=== PATIENT | female | born 1970 ===

== ENCOUNTER 2021-07-22 19:32 | Inpatient (IN) | payer BC ==
[2021-07-22] MEDS ORDERED: Sodium Chloride 0.9% 2.5 ML Syringe FLUSH PRN (20:57)
[2021-07-22] MEDS ORDERED: Nalbuphine 10 MG/1 ML Vial IVPUSH PRN (20:57)
[2021-07-22] MEDS ORDERED: Sodium Chloride 0.9% 20 ML SDV IV PRN (20:57)
[2021-07-22] MEDS ORDERED: Misoprostol 200 MCG Tab PO PRN (20:57)
[2021-07-22] MEDS ORDERED: Lidocaine 1% 50 ML MDV INJECT PRN (20:57)
[2021-07-22] MEDS ORDERED: Tranexamic Acid 1,000 MG in Sodium Chloride 0.9% 100 ML IV PRN (20:57)
[2021-07-22] MEDS ORDERED: Terbutaline 1 MG/ML SDV SUBCUT PRN (20:57)
[2021-07-22] MEDS ORDERED: Sodium Chloride 0.9% 10 ML Syringe FLUSH PRN (20:57)
[2021-07-22] MEDS ORDERED: Methylergonovine 0.2 MG/1 ML Amp IM PRN (20:57)
[2021-07-22] MEDS ORDERED: Water For Irrigation,Sterile 1,000 ML Container IRR PRN (20:57)
[2021-07-22] MEDS ORDERED: Carboprost Tromethamine 250 MCG/1 ML Amp IM PRN (20:57)
[2021-07-22] MEDS ORDERED: Butorphanol 1 MG/ML SDV IVPUSH PRN (20:57)
[2021-07-22] MEDS ORDERED: Misoprostol 25 MCG (1/4 of 100 MCG) Tab VAG PRN ×2 (20:57)
[2021-07-22] MEDS ORDERED: Lactated Ringers 1,000 ML IV SCH (21:00)
[2021-07-22] MEDS ORDERED: Oxytocin/0.9 % Sodium Chloride 30 UNIT/500 ML BAG IV SCH ×2 (21:00)
[2021-07-23] MEDS ORDERED: Ampicillin 2 GM in Sodium Chloride 0.9% 100 ML IV ONE (04:16)
[2021-07-23] MEDS ORDERED: Ropivacaine HCl/PF 100 ML ONE (05:40)
[2021-07-23] MEDS ORDERED: ePHEDrine 50 MG/ML SDV IVPUSH PRN (05:53)
--- NOTE | 2021-07-23 05:55 | PCM.PREANE ---
Preanesthetic Assessment - Procedure Proposed Procedure: Labor Epidural - Anesthesia/Transfusion/Family Hx Anesthesia History: Prior Anesthesia Without Reaction Family History of Anesthesia Reaction: No Transfusion History: No Prior Transfusion(s) Additional History: Anemia - Review of Systems General: No Symptoms Pulmonary: No Symptoms Cardiovascular: No Symptoms, Other (Anemia) Gastrointestinal: No Symptoms Neurological: No Symptoms Other: Reports: None - Physical Assessment NPO Status Date: 07/23/21 NPO Status Time: 05:00 Height: 1.7 m Weight: 93.894 kg ASA Class: 2 Mental Status: Alert & Oriented x3 Airway Class: Mallampati = 2 Dentition: Reports: Normal Dentition Thyro-Mental Finger Breadths: 3 Mouth Opening Finger Breadths: 3 ROM/Head Extension: Full Lungs: Clear to Auscultation, Normal Respiratory Effort Cardiovascular: Regular Rate, Regular Rhythm - Lab Values: Laboratory Last Values WBC 10.46 K/uL (4.0-11.0) 07/22/21 20:45 RBC 3.50 M/uL (4.30-5.90) L 07/22/21 20:45 Hgb 8.6 g/dL (12.0-16.0) L 07/22/21 20:45 Hct 26.8 % (36.0-46.0) L 07/22/21 20:45 MCV 76.6 fL (80.0-98.0) L 07/22/21 20:45 MCH 24.6 pg (27.0-32.0) L 07/22/21 20:45 MCHC 32.1 g/dL (31.0-37.0) 07/22/21 20:45 RDW Std Deviation 38.4 fl (28.0-62.0) 07/22/21 20:45 RDW Coeff of Laure 14 % (11.0-15.0) 07/22/21 20:45 Plt Count 486 K/uL (150-400) H 07/22/21 20:45 MPV 9.10 fL (7.40-12.00) 07/22/21 20:45 Nucleated RBC % 0.0 /100WBC 07/22/21 20:45 Nucleated RBCs # 0 K/uL 07/22/21 20:45 SARS-CoV-2 RNA (BELKIS) NEGATIVE (NEGATIVE) 12/28/21 21:10 Blood Type O POSITIVE 07/22/21 20:45 Antibody Screen NEGATIVE 07/22/21 20:45 Crossmatch See Detail 07/22/21 20:45 - Allergies Allergies/Adverse Reactions: Allergies Allergy/AdvReac Type Severity Reaction Status Date / Time acetaminophen [From Vicodin] Allergy Rash Verified 12/04/15 15:53 hydrocodone bitartrate Allergy Rash Verified 12/04/15 15:53 [From Vicodin] - Blood Blood Available: Yes Product(s) Available: PRBC (Type and Cross with 2 units PRBC) - Anesthesia Plan Pre-Op Medication Ordered: None - Acknowledgements Anesthesia Type Planned: Epidural Pt an Appropriate Candidate for the Planned Anesthesia: Yes Alternatives and Risks of Anesthesia Discussed w Pt/Guardian: Yes Pt/Guardian Understands and Agrees with Anesthesia Plan: Yes PreAnesthesia Questionnaire HEENT History: Reports: None Cardiovascular History: Reports: None Respiratory History: Reports: None Gastrointestinal History: Reports: Cholelithiasis, GERD Genitourinary History: Reports: None 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 Cone biopsy 2009. Musculoskeletal History: Reports: None Neurological History: Reports: None Psychiatric History: Reports: None Endocrine/Metabolic History: Reports: None Hematologic History: Reports: Blood Transfusion(s) Immunologic History: Reports: None Oncologic (Cancer) History: Reports: None Dermatologic History: Reports: None - Infectious Disease History Infectious Disease History: Reports: Chicken Pox, Human Papilloma Virus (HPV), Novel Coronavirus - Past Surgical History HEENT Surgical History: Reports: None GI Surgical History: Reports: Cholecystectomy Female Surgical History: Reports: LEEP, Other (See Below) Other Female Surgeries/Procedures: 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 - SUBSTANCE USE Tobacco Use Status *Q: Never Tobacco User Second Hand Smoke Exposure: No Recreational Drug Use History: No - CURRENT (IN HOUSE) MEDS Current Meds: Current Medications Butorphanol Tartrate (Butorphanol 1 Mg/Ml Sdv) 1 mg IVPUSH Q1H PRN PRN Reason: Pain (severe 7-10) Carboprost Tromethamine (Carboprost Tromethamine 250 Mcg/1 Ml Amp) 250 mcg IM ASDIRECTED PRN PRN Reason: Post Hemorrhage Oxytocin/Sodium Chloride (Oxytocin 30 Unit In Ns 0.9% 500 Ml Premix) 30 unit in 500 mls @ 500 mls/hr IV TITRATE [facility] Tranexamic Acid 1,000 mg/ (Sodium Chloride) 110 mls @ 660 mls/hr IV ONETIME PRN PRN Reason: Bleeding Oxytocin/Sodium Chloride (Oxytocin 30 Unit In Ns 0.9% 500 Ml Premix) 30 unit in 500 mls @ 2 mls/hr IV TITRATE GEOVANY; Protocol Lactated Ringer's (Ringers, Lactated) 1,000 mls @ 150 mls/hr IV ASDIRECTED GE[facility] Last Admin: 07/23/21 04:30 Dose: 150 mls/hr Documented by: Lidocaine HCl (Lidocaine 1% 50 Ml Mdv) 50 ml INJECT ONETIME PRN PRN Reason: Laceration repair Methylergonovine Maleate (Methylergonovine 0.2 Mg/1 Ml Amp) 0.2 mg IM ASDIRECTED PRN PRN Reason: Post Hemorrhage Misoprostol (Misoprostol 200 Mcg Tab) 200 mcg PO ONETIME PRN PRN Reason: Post Hemorrhage Misoprostol (Misoprostol 25 Mcg (1/4 Of 100 Mcg) Tab) 25 mcg VAG ONETIME PRN PRN Reason: Cervical Ripening Last Admin: 07/22/21 21:26 Dose: 25 mcg Documented by: Misoprostol (Misoprostol 25 Mcg (1/4 Of 100 Mcg) Tab) 25 mcg VAG Q4H PRN PRN Reason: Cervical Ripening Nalbuphine HCl (Nalbuphine 10 Mg/1 Ml Vial) 10 mg IVPUSH Q1H PRN PRN Reason: Pain (severe 7-10) Sodium Chloride (Sodium Chloride 0.9% 10 Ml Syringe) 10 ml FLUSH ASDIRECTED PRN PRN Reason: Keep Vein Open Sodium Chloride (Sodium Chloride 0.9% 2.5 Ml Syringe) 2.5 ml FLUSH ASDIRECTED PRN PRN Reason: Keep Vein Open Sodium Chloride (Sodium Chloride 0.9% 20 Ml Sdv) 10 ml IV ASDIRECTED PRN PRN Reason: IV Use Sterile Water (Water For Irrigation,Sterile 1,000 Ml Container) 1,000 ml IRR ASDIRECTED PRN PRN Reason: delivery Terbutaline Sulfate (Terbutaline 1 Mg/Ml Sdv) 0.25 mg SUBCUT ASDIRECTED PRN PRN Reason: Tacysystole Discontinued Medications Ampicillin Sodium 2 gm/ Sodium (Chloride) 100 mls @ 200 mls/hr IV ONETIME ONE Stop: 07/23/21 04:45 Last Admin: 07/23/21 04:30 Dose: 200 mls/hr Documented by: Ropivacaine (Naropin 0.2%) Confirm Administered Dose 100 mls @ as directed .LOVE RosenSTK-MED ONE Stop: 07/23/21 05:41
--- NOTE | 2021-07-23 05:59 | PCM.SN.2 ---
- Pre-Procedure Checklist Attending Provider Aware: Yes Chart Reviewed: Yes Consent Signed: Yes Labs Reviewed: Yes VS/FHR Reviewed: Yes Patient Identification Confirmation Method: Reports: Chart Visual, Verbal Patient Pt an Appropriate Candidate for the Planned Anesthesia: Yes Alternatives and Risks of Anesthesia Discussed w Pt/Guardian: Yes - Procedure Procedure Start Date: 07/23/21 Procedure Start Time: 05:[address]: Reports: Blood Pressure, Heart Rate, SPO2 Functional IV: Yes Bolus Infused (fluid type and amount): 800 ml LR at time of start Safety Measures: Reports: Patient Identified, Procedure Verified, Site Verified, Procedure Time Out Patient Position: Reports: Sitting Prep: Reports: Betadine x3 Local Anesthetic: Reports: Intradermal Wheal w Lidocaine 1% (3 ml) Regional Placement Level: Reports: L3-4 Needle: Reports: 17 g Touhy Approach: Reports: Midline Technique: Reports: BETTY Glass Syringe BETTY Needle Depth (cm): 7 cm Parasthesia: Reports: None Fluid Obtained: Reports: None Catheter Depth at Skin (cm): 16 cm Test Dose Time: 05:35 Test Dose Medication: Reports: Lidocaine 1.5% w Epinephrine 1:200,000 (5 ml) Test Dose Response: Reports: Negative Loading Dose Time: 05:45 Loading Dose Medication: Ropivicaine 0.2% Loading Dose Patient Position: Supine Continuous Infusion Start Time: 05:46 Continuous Infusion Medication: Ropivicaine 0.2% Continuous Infusion Rate: 14 Continuous Infusion PCS Bolus Option: 6 Continuous Infusion Lockout Dose (cc/hr): 15 (min lockout) Patient Position Post Placement: Reports: Supine, Supline/REGINO Post-procedure Pain Level: 3 Level Achieved: See post note VS and FHR Monitored in Unit Post Placement: Yes Procedure End Date: 07/23/21 Procedure End Time: 06:15 Procedure Comment: Sterile Technique maintained throughout.
[2021-07-23] MEDS ORDERED: Ropivacaine HCl/PF 200 MG in Premix Bag 1 BAG EPIDUR SCH (06:00)
--- NOTE | 2021-07-23 06:00 | PCM.POSTAN ---
POST ANESTHESIA ASSESSMENT - MENTAL STATUS Mental Status: Alert, Oriented - RESPIRATORY Respiratory Status: Respiratory Rate WNL, Airway Patent, O2 Saturation Stable - CARDIOVASCULAR CV Status: Pulse Rate WNL, Blood Pressure Stable - GASTROINTESTINAL GI Status: No Symptoms - POST OP HYDRATION Hydration Status: Adequate & Stable - OBSERVATIONS Free Text/Narrative:: T6 block achieved.
[2021-07-23] MEDS ORDERED: Ampicillin 1 GM in Sodium Chloride 0.9% 50 ML IV SCH (07:15)
[2021-07-23] MEDS ORDERED: Bisacodyl 10 MG Supp RECTAL PRN (12:47)
[2021-07-23] MEDS ORDERED: Ibuprofen 800 MG Tab PO PRN (12:47)
[2021-07-23] MEDS ORDERED: Docusate Sodium 100 MG Cap PO PRN (12:47)
[2021-07-23] MEDS ORDERED: Lanolin 100% Cream 7 GM Tube TOP PRN (12:47)
[2021-07-23] MEDS ORDERED: oxyCODONE 5 MG Tab PO PRN (12:47)
[2021-07-23] MEDS ORDERED: Benzocaine/Menthol 20%-0.5% Spray 78 GM Cannister TOP PRN (12:47)
[2021-07-23] MEDS ORDERED: Witch Hazel Medicated Pads 40/Jar TOP PRN (12:47)
--- NOTE | 2021-07-23 12:56 | PCM.DEL ---
L & D Note - General Info Date of Service: 07/23/21 Mother's Due Date: 08/20/21 - Delivery Note Labor: Augmented by ARM Cervical Ripening Method: Misoprostil Delivery Outcome: Livebirth Infant Delivery Method: Spontaneous Vaginal Delivery-Single Presentation: direct OP Nuchal Cord: None Anesthesia Type: Epidural Amniotic Fluid Description: Clear Episiotomy Type: None Laceration: None Placenta: Intact, Spontaneous Cord: 3 Vessels Estimated Blood Loss: 300 Resuscitation Needed: Yes Mead: Suctioned, Cathether, Stimulated, Warmed, Warmer Used Score 1 min: 5 Score 5 min: 8 Delivery Comments (Free Text/Narrative):: Live male infant, weight pending - General Info Date of Service: 07/23/21 - Patient Data Weight - Most Recent: 93.894 kg Lab Results Last 24 Hours: Laboratory Results - last 24 hr 07/22/21 07/22/21 07/22/21 Range/Units 20:45 20:45 21:10 WBC 10.46 (4.0-11.0) K/uL RBC 3.50 L (4.30-5.90) M/uL Hgb 8.6 L (12.0-16.0) g/dL Hct 26.8 L (36.0-46.0) % MCV 76.6 L (80.0-98.0) fL MCH 24.6 L (27.0-32.0) pg MCHC 32.1 (31.0-37.0) g/dL RDW Std Deviation 38.4 (28.0-62.0) fl RDW Coeff of Laure 14 (11.0-15.0) % Plt Count 486 H (150-400) K/uL MPV 9.10 (7.40-12.00) fL Nucleated RBC % 0.0 /100WBC Nucleated RBCs # 0 K/uL SARS-CoV-2 RNA (BELKIS) NEGATIVE (NEGATIVE) Blood Type O POSITIVE Antibody Screen NEGATIVE Crossmatch See Detail Med Orders - Current: Current Medications Butorphanol Tartrate (Butorphanol 1 Mg/Ml Sdv) 1 mg IVPUSH Q1H PRN PRN Reason: Pain (severe 7-10) Carboprost Tromethamine (Carboprost Tromethamine 250 Mcg/1 Ml Amp) 250 mcg IM ASDIRECTED PRN PRN Reason: Post Hemorrhage Ephedrine Sulfate (Ephedrine 50 Mg/Ml Sdv) 10 mg IVPUSH Q1M PRN PRN Reason: Hypotension Oxytocin/Sodium Chloride (Oxytocin 30 Unit In Ns 0.9% 500 Ml Premix) 30 unit in 500 mls @ 500 mls/hr IV TITRATE [facility] Last Infusion: 07/23/21 12:51 Dose: 250 mls/hr Documented by: Tranexamic Acid 1,000 mg/ (Sodium Chloride) 110 mls @ 660 mls/hr IV ONETIME PRN PRN Reason: Bleeding Oxytocin/Sodium Chloride (Oxytocin 30 Unit In Ns 0.9% 500 Ml Premix) 30 unit in 500 mls @ 2 mls/hr IV TITRATE [facility]; Protocol Last Titration: 07/23/21 12:35 Dose: 0 munits/min, 0 mls/hr Documented by: Lactated Ringer's (Ringers, Lactated) 1,000 mls @ 150 mls/hr IV ASDIRECTED [facility] Last Admin: 07/23/21 04:30 Dose: 150 mls/hr Documented by: Ropivacaine 200 mg/ Premix 100 mls @ 0 mls/hr EPIDUR ASDIRECTED [facility] Ampicillin Sodium 1 gm/ Sodium (Chloride) 50 mls @ 100 mls/hr IV Q4H [facility] Last Admin: 07/23/21 08:24 Dose: 100 mls/hr Documented by: Lidocaine HCl (Lidocaine 1% 50 Ml Mdv) 50 ml INJECT ONETIME PRN PRN Reason: Laceration repair Methylergonovine Maleate (Methylergonovine 0.2 Mg/1 Ml Amp) 0.2 mg IM ASDIRECTED PRN PRN Reason: Post Hemorrhage Miscellaneous Medication (Phenylephrine Hcl In 0.9% Nacl 1 Mg/10 Ml Syringe) 0.1 mg IVPUSH Q1M PRN PRN Reason: Hypotension Misoprostol (Misoprostol 200 Mcg Tab) 200 mcg PO ONETIME PRN PRN Reason: Post Hemorrhage Misoprostol (Misoprostol 25 Mcg (1/4 Of 100 Mcg) Tab) 25 mcg VAG ONETIME PRN PRN Reason: Cervical Ripening Last Admin: 07/22/21 21:26 Dose: 25 mcg Documented by: Misoprostol (Misoprostol 25 Mcg (1/4 Of 100 Mcg) Tab) 25 mcg VAG Q4H PRN PRN Reason: Cervical Ripening Nalbuphine HCl (Nalbuphine 10 Mg/1 Ml Vial) 10 mg IVPUSH Q1H PRN PRN Reason: Pain (severe 7-10) Sodium Chloride (Sodium Chloride 0.9% 10 Ml Syringe) 10 ml FLUSH ASDIRECTED PRN PRN Reason: Keep Vein Open Sodium Chloride (Sodium Chloride 0.9% 2.5 Ml Syringe) 2.5 ml FLUSH ASDIRECTED PRN PRN Reason: Keep Vein Open Sodium Chloride (Sodium Chloride 0.9% 20 Ml Sdv) 10 ml IV ASDIRECTED PRN PRN Reason: IV Use Sterile Water (Water For Irrigation,Sterile 1,000 Ml Container) 1,000 ml IRR ASDIRECTED PRN PRN Reason: delivery Terbutaline Sulfate (Terbutaline 1 Mg/Ml Sdv) 0.25 mg SUBCUT ASDIRECTED PRN PRN Reason: Tacysystole Discontinued Medications Ampicillin Sodium 2 gm/ Sodium (Chloride) 100 mls @ 200 mls/hr IV ONETIME ONE Stop: 07/23/21 04:45 Last Admin: 07/23/21 04:30 Dose: 200 mls/hr Documented by: Ropivacaine (Naropin 0.2%) Confirm Administered Dose 100 mls @ as directed .ROUTE .STK-MED ONE Stop: 07/23/21 05:41 - Exam Urinary Catheter Total Time: 0Days 6Hours - Problem List & Annotations (1) Advanced maternal age (AMA) in SNOMED Code(s): 574925637 Code(s): AVZ1803 - Status: Acute Current Visit: Yes (2) In vitro fertilization SNOMED Code(s): 535888183 Code(s): Z31.83 - ENCOUNTER FOR ASSISTED REPRODCTV FERTILITY PROCEDURE CYCLE Status: Acute Current Visit: Yes (3) Cholestasis during SNOMED Code(s): 396327989 Code(s): O26.619 - LIVER AND BILIARY TRACT DISORD IN , UNSP TRIMESTER; K83.1 - OBSTRUCTION OF BILE DUCT Status: Acute Current Visit: Yes (4) Vaginal delivery SNOMED Code(s): 531226519 Code(s): O80 - ENCOUNTER FOR FULL-TERM UNCOMPLICATED DELIVERY Status: Acute Current Visit: No - Problem List Review Problem List Initiated/Reviewed/Updated: Yes - My Orders Last 24 Hours: My Active Orders 07/23/21 Lunch Regular Diet [DIET] 07/23/21 12:47 Patient Status [ADT] Routine May Shower [RC] ASDIRECTED Notify Provider Vital Signs [RC] ASDIRECTED Up ad Anneliese [RC] ASDIRECTED Vital Signs [RC] PER UNIT ROUTINE BLOOD GAS ARTERIAL UMBILICAL [BG] Urgent BLOOD GAS VENOUS UMBILICAL [BG] Urgent Benzocaine/Menthol [Dermoplast Pain Relief 20%-0.5% [place]] 78 gm TOP ASDIRECTED PRN Docusate Sodium [Colace] 100 mg PO Q12H PRN Ibuprofen [Motrin] 800 mg PO Q8H PRN Lanolin [Lansinoh HPA] See Dose Instructions TOP ASDIRECTED PRN bisacodyL [Dulcolax] 10 mg RECTAL ONETIME PRN oxyCODONE 5 mg PO Q2H PRN witch Keith [Tucks] 1 pad TOP ASDIRECTED PRN Assess Lochia [WOMSER] Per Unit Routine Assess Uterine Involution [WOMSER] Per Unit Routine Breast Pump [WOMSER] Per Unit Routine Ice Therapy [OM.PC] Per Unit Routine Perineal Care [OM.PC] Per Unit Routine Peripheral IV Discontinue [OM.PC] Routine Sitz Bath [OM.PC] Per Unit Routine 07/23/21 12:48 Cooling Warming Measures [RC] ASDIRECTED 07/24/21 05:11 HEMOGLOBIN/HEMATOCRIT,HH [HEME] Timed - Assessment Assessment:: 50yo s/p at 36w0d - Plan Plan:: -Admit to unit for routine cares -Rh positive, GBS unknown - received 2 doses of Ampicillin prior to AROM -Advanced maternal age -Cholestasis of - placenta sent to pathology -IVF with donor egg
--- NOTE | 2021-07-24 | OR ---
SURGEON: Rachelle Recio MD DATE OF PROCEDURE: 07/23/2021 PREOPERATIVE DIAGNOSES: 1. 50-year-old, G6, P 3-2-0-5, at 36 weeks and 0 days' gestation. 2. Induction of labor for intrahepatic cholestasis of . 3. Advanced maternal age. 4. In vitro fertilisation with donor egg. 5. Group B Streptococcus unknown. POSTOPERATIVE DIAGNOSES: 1. 50-year-old, G6, P 3-3-0-6, at 36 weeks and 0 days' gestation. 2. Induction of labor for intrahepatic cholestasis of . 3. Advanced maternal age. 4. In vitro fertilisation with donor egg. 5. Group B Streptococcus unknown. PROCEDURE: Spontaneous vaginal delivery. PRIMARY SURGEON: Rachelle Recio MD ANESTHESIA: Epidural. FINDINGS: Live male in cephalic presentation. score of 8 and 9 at one and five minutes respectively. Weight pending. Placenta intact and with 3-vessel cord. No perineal lacerations. DESCRIPTION OF PROCEDURE: This is a 50-year-old, G6, P 3-2-0-5, who presented at 36 weeks and 0 days' gestation for induction of labor due to intrahepatic cholestasis with a bile acid of 83. Upon presentation, her cervix was found to be 1 cm dilated. Ampicillin was started for GBS prophylaxis. She received one dose of Cytotec for cervical ripening, and she began alan. She received an epidural for pain control. After the second dose of ampicillin had been given, artificial rupture of membranes occurred with clear fluid noted. She continued to labor and progressed to complete cervical dilation, and I was called to the room. Upon presentation, the patient's cervix was found to be completely dilated with the infant's head at +2 station. Over the next hour, the patient pushed, however, due to far spacing of the contractions, Pitocin was started to increase contraction power and timing. She subsequently delivered a live male . The head was delivered followed by the shoulders and remainder of the body. The was placed on the maternal abdomen. After approximately 45 seconds, the cord was clamped and cut, and the infant was taken to the warmer for evaluation by the strap setter and nurse. Cord blood and cord gases were obtained. Placenta then delivered intact and with 3-vessel cord via the Dang-Briggs maneuver. The perineum was inspected and no lacerations were noted. Fundus firm below the umbilicus with minimal bleeding. The patient and tolerated the delivery well. [id number] / MODL /[id number] MTDD
--- NOTE | 2021-07-24 07:08 | PCM48HPAN ---
Post Anesthesia Note - EVALUATION WITHIN 48HRS OF ANESTHETIC Vital Signs in Normal Range: Yes Patient Participated in Evaluation: Yes Respiratory Function Stable: Yes Airway Patent: Yes Cardiovascular Function Stable: Yes Hydration Status Stable: Yes Pain Control Satisfactory: Yes Nausea and Vomiting Control Satisfactory: Yes Mental Status Recovered: Yes Vital Signs: Last Vital Signs Temp 37.5 C 07/24/21 04:10 Pulse 92 07/24/21 04:10 Resp 18 07/24/21 04:10 BP 134/83 07/24/21 04:10 Pulse Ox 96 07/24/21 04:10
--- NOTE | 2021-07-24 07:46 | PCM.PNPP ---
- General Info Date of Service: 07/24/21 Subjective Update: Patient without complaints this morning, doing well. Functional Status: Reports: Pain Controlled, Tolerating Diet, Ambulating, Urinating - Review of Systems General: Reports: No Symptoms HEENT: Reports: No Symptoms Pulmonary: Reports: No Symptoms Cardiovascular: Reports: No Symptoms Gastrointestinal: Reports: No Symptoms Genitourinary: Reports: No Symptoms Musculoskeletal: Reports: No Symptoms Skin: Reports: No Symptoms Neurological: Reports: No Symptoms Psychiatric: Reports: No Symptoms - Patient Data Vital Signs - Most Recent: Last Vital Signs Temp 37.5 C 07/24/21 04:10 Pulse 92 07/24/21 04:10 Resp 18 07/24/21 04:10 BP 134/83 07/24/21 04:10 Pulse Ox 96 07/24/21 04:10 Weight - Most Recent: 93.894 kg Lab Results - Last 24 Hours: Laboratory Results - last 24 hr 07/23/21 07/24/21 Range/Units 12:34 05:36 Hgb 8.9 L (12.0-16.0) g/dL Hct 27.9 L (36.0-46.0) % Cord ABG pH 7.195 (7.18-7.38) Cord ABG Base Excess -9 (-10--2) Cord VBG pH 7.340 (7.25-7.45) Cord VBG Base Excess -8 (-10--2) Med Orders - Current: Current Medications Benzocaine/Menthol (Benzocaine/Menthol 20%-0.5% [place] 78 Gm Cannister) 78 gm TOP ASDIRECTED PRN PRN Reason: Perineal Comfort Measure Last Admin: 07/23/21 14:07 Dose: 1 canister Documented by: Bisacodyl (Bisacodyl 10 Mg Supp) 10 mg RECTAL ONETIME PRN PRN Reason: Constipation Butorphanol Tartrate (Butorphanol 1 Mg/Ml Sdv) 1 mg IVPUSH Q1H PRN PRN Reason: Pain (severe 7-10) Carboprost Tromethamine (Carboprost Tromethamine 250 Mcg/1 Ml Amp) 250 mcg IM ASDIRECTED PRN PRN Reason: Post Hemorrhage Docusate Sodium (Docusate Sodium 100 Mg Cap) 100 mg PO Q12H PRN PRN Reason: Constipation Emollient Ointment (Lanolin 100% Cream 7 Gm Tube) 0 gm TOP ASDIRECTED PRN PRN Reason: Sore Nipples Last Admin: 07/23/21 14:08 Dose: 7 g Documented by: Ephedrine Sulfate (Ephedrine 50 Mg/Ml Sdv) 10 mg IVPUSH Q1M PRN PRN Reason: Hypotension Oxytocin/Sodium Chloride (Oxytocin 30 Unit In Ns 0.9% 500 Ml Premix) 30 unit in 500 mls @ 500 mls/hr IV TITRATE [facility] Last Infusion: 07/23/21 12:51 Dose: 250 mls/hr Documented by: Tranexamic Acid 1,000 mg/ (Sodium Chloride) 110 mls @ 660 mls/hr IV ONETIME PRN PRN Reason: Bleeding Oxytocin/Sodium Chloride (Oxytocin 30 Unit In Ns 0.9% 500 Ml Premix) 30 unit in 500 mls @ 2 mls/hr IV TITRATE [facility]; Protocol Last Titration: 07/23/21 12:35 Dose: 0 munits/min, 0 mls/hr Documented by: Lactated Ringer's (Ringers, Lactated) 1,000 mls @ 150 mls/hr IV ASDIRECTED [facility] Last Admin: 07/23/21 04:30 Dose: 150 mls/hr Documented by: Ropivacaine 200 mg/ Premix 100 mls @ 0 mls/hr EPIDUR ASDIRECTED [facility] Ampicillin Sodium 1 gm/ Sodium (Chloride) 50 mls @ 100 mls/hr IV Q4H [facility] Last Admin: 07/23/21 08:24 Dose: 100 mls/hr Documented by: Ibuprofen (Ibuprofen 800 Mg Tab) 800 mg PO Q8H PRN PRN Reason: Cramping Last Admin: 07/23/21 14:09 Dose: 800 mg Documented by: Lidocaine HCl (Lidocaine 1% 50 Ml Mdv) 50 ml INJECT ONETIME PRN PRN Reason: Laceration repair Methylergonovine Maleate (Methylergonovine 0.2 Mg/1 Ml Amp) 0.2 mg IM ASDIRECTED PRN PRN Reason: Post Hemorrhage Miscellaneous Medication (Phenylephrine Hcl In 0.9% Nacl 1 Mg/10 Ml Syringe) 0.1 mg IVPUSH Q1M PRN PRN Reason: Hypotension Misoprostol (Misoprostol 200 Mcg Tab) 200 mcg PO ONETIME PRN PRN Reason: Post Hemorrhage Misoprostol (Misoprostol 25 Mcg (1/4 Of 100 Mcg) Tab) 25 mcg VAG ONETIME PRN PRN Reason: Cervical Ripening Last Admin: 07/22/21 21:26 Dose: 25 mcg Documented by: Misoprostol (Misoprostol 25 Mcg (1/4 Of 100 Mcg) Tab) 25 mcg VAG Q4H PRN PRN Reason: Cervical Ripening Nalbuphine HCl (Nalbuphine 10 Mg/1 Ml Vial) 10 mg IVPUSH Q1H PRN PRN Reason: Pain (severe 7-10) Oxycodone HCl (Oxycodone 5 Mg Tab) 5 mg PO Q2H PRN PRN Reason: Pain (severe 7-10) Sodium Chloride (Sodium Chloride 0.9% 10 Ml Syringe) 10 ml FLUSH ASDIRECTED PRN PRN Reason: Keep Vein Open Sodium Chloride (Sodium Chloride 0.9% 2.5 Ml Syringe) 2.5 ml FLUSH ASDIRECTED PRN PRN Reason: Keep Vein Open Sodium Chloride (Sodium Chloride 0.9% 20 Ml Sdv) 10 ml IV ASDIRECTED PRN PRN Reason: IV Use Sterile Water (Water For Irrigation,Sterile 1,000 Ml Container) 1,000 ml IRR ASDIRECTED PRN PRN Reason: delivery Last Admin: 07/23/21 13:05 Dose: 1,000 ml Documented by: Terbutaline Sulfate (Terbutaline 1 Mg/Ml Sdv) 0.25 mg SUBCUT ASDIRECTED PRN PRN Reason: Tacysystole Witch [place] (Witch Keith Medicated Pads 40/Jar) 1 pad TOP ASDIRECTED PRN PRN Reason: comfort care Last Admin: 07/23/21 14:07 Dose: 1 tub Documented by: Discontinued Medications Ampicillin Sodium 2 gm/ Sodium (Chloride) 100 mls @ 200 mls/hr IV ONETIME ONE Stop: 07/23/21 04:45 Last Admin: 07/23/21 04:30 Dose: 200 mls/hr Documented by: Ropivacaine (Naropin 0.2%) Confirm Administered Dose 100 mls @ as directed .Lela RosenSTK-MED ONE Stop: 07/23/21 05:41 - Infant Interaction Infant Disposition, : [place] in Room with Family Infant Interaction: Holding Infant Infant Feeding: Breastfed Infant; Nursed Well Support Person: - Recovery Exam Fundal Tone: Firm Fundal Level: At Umbilicus Fundal Placement: Midline Lochia Amount: Scant Lochia Color: Rubra/Red Bladder Status: Voiding Urinary Elimination: Voided - Exam General: Alert, Oriented Neck: Supple Lungs: Normal Respiratory Effort GI/Abdominal Exam: Soft, Non-Tender, No Distention Extremities: Non-Tender, No Pedal Edema Skin: Warm, Dry, Intact Neurological: No New Focal Deficit Psy/Mental Status: Alert, Normal Affect, Normal Mood - Problem List & Annotations (1) Advanced maternal age (AMA) in SNOMED Code(s): 408591320 Code(s): HTR7844 - Status: Acute Current Visit: Yes (2) In vitro fertilization SNOMED Code(s): 978759272 Code(s): Z31.83 - ENCOUNTER FOR ASSISTED REPRODCTV FERTILITY PROCEDURE CYCLE Status: Acute Current Visit: Yes (3) Cholestasis during SNOMED Code(s): 412583062 Code(s): O26.619 - LIVER AND BILIARY TRACT DISORD IN , UNSP TRIMEST ER; K83.1 - OBSTRUCTION OF BILE DUCT Status: Acute Current Visit: Yes (4) Vaginal delivery SNOMED Code(s): 121918490 Code(s): O80 - ENCOUNTER FOR FULL-TERM UNCOMPLICATED DELIVERY Status: Acute Current Visit: No - Problem List Review Problem List Initiated/Reviewed/Updated: Yes - My Orders Last 24 Hours: My Active Orders 07/23/21 Lunch Regular Diet [DIET] 07/23/21 12:47 Patient Status [ADT] Routine May Shower [RC] ASDIRECTED Notify Provider Vital Signs [RC] ASDIRECTED Up ad Anneliese [RC] ASDIRECTED Vital Signs [RC] PER UNIT ROUTINE Benzocaine/Menthol [Dermoplast Pain Relief 20%-0.5% [place]] 78 gm TOP ASDIRECTED PRN Docusate Sodium [Colace] 100 mg PO Q12H PRN Ibuprofen [Motrin] 800 mg PO Q8H PRN Lanolin [Lansinoh HPA] See Dose Instructions TOP ASDIRECTED PRN bisacodyL [Dulcolax] 10 mg RECTAL ONETIME PRN oxyCODONE 5 mg PO Q2H PRN witch [place] [Tucks] 1 pad TOP ASDIRECTED PRN Assess Lochia [WOMSER] Per Unit Routine Assess Uterine Involution [WOMSER] Per Unit Routine Breast Pump [WOMSER] Per Unit Routine Ice Therapy [OM.PC] Per Unit Routine Perineal Care [OM.PC] Per Unit Routine Peripheral IV Discontinue [OM.PC] Routine Sitz Bath [OM.PC] Per Unit Routine 07/23/21 12:48 Cooling Warming Measures [RC] ASDIRECTED 07/24/21 07:44 Ready for Discharge [RC] PER UNIT ROUTINE - Assessment Assessment:: 50yo s/p at 36w0d, PPD#1 - Plan Plan:: -Continue routine cares -Rh positive, GBS pending - received 2 doses of Ampicillin prior to AROM -Advanced maternal age -Cholestasis of - placenta sent to pathology -IVF with donor egg -Patient desires discharge home if cleared by Logistics Lead. Reviewed discharge instructions. All questions answered.
[2021-07-24 10:05] VITALS: BP 126/71; PULSE 96
[2021-07-24] MEDS ORDERED: Lidocaine 1% 20 ML MDV INJECT PRN (12:14)
== END 2021-07-24 18:00 | disposition home or self-care (01) | DRG 560 ==
LOC: MW.OB 19:32 → MW.OBCHECK 19:32 → MW.OB 20:58 → MW.OBCHECK 20:58 → OBSVTOIN 07-23 12:47 → MW.OB 07-23 20:05
PROVIDERS: ADMIT Obstetrics & Gynecology; ATTEND Obstetrics & Gynecology
PROC: 10E0XZZ Delivery of Products of Conception, External Approach (ICD-10-PCS; principal; 2021-07-23)
PROC: 3E0P7VZ Introduction of Hormone into Female Reproductive, Via Natural or Artificial Opening (ICD-10-PCS; 2021-07-23)
PROC: 10907ZC Drainage of Amniotic Fluid, Therapeutic from Products of Conception, Via Natural or Artificial Opening (ICD-10-PCS; 2021-07-23)
PROC: 3E033VJ Introduction of Other Hormone into Peripheral Vein, Percutaneous Approach (ICD-10-PCS; 2021-07-23)
PROC: 3E0R3BZ Introduction of Anesthetic Agent into Spinal Canal, Percutaneous Approach (ICD-10-PCS; 2021-07-23)
PROC: 00HU33Z Insertion of Infusion Device into Spinal Canal, Percutaneous Approach (ICD-10-PCS; 2021-07-23)
PROC: 4A1HXCZ Monitoring of Products of Conception, Cardiac Rate, External Approach (ICD-10-PCS; 2021-07-23)
DX: O26.62 Liver and biliary tract disorders in childbirth (principal); K83.1 Obstruction of bile duct; Z3A.36 36 weeks gestation of pregnancy; Z37.0 Single live birth; O09.813 Supervision of pregnancy resulting from assisted reproductive technology, third trimester; Z20.822 Contact with and (suspected) exposure to COVID-19
CPT/HCPCS: 36415; 51702; 59025; 59409; 82803; 85014; 85018; 85027; 86592; 86850; 86900; 86901; 86920; 86921; 86922; A9270-GY; J0290; J2590; J2795; J7120; U0002